=== PATIENT | female | born 2000 | race Caucasian/White ===

== ENCOUNTER 2020-11-14 19:01 | Emergency (ER) | payer MEDICARE, MEDICAID ==
[~2020-11-14] VITALS: Ht 162.6 cm; Wt 68.2 kg
--- NOTE | 2020-11-14 20:10 | NUR ---
PA currently at bedside.
[2020-11-14 20:33] VITALS: BP 117/71
== END 2020-11-14 20:37 | disposition home or self-care (01) ==
LOC: ER 19:02
DX: F41.9 Anxiety disorder, unspecified (principal); R06.02 Shortness of breath; R42 Dizziness and giddiness; R45.1 Restlessness and agitation; R51.9 Headache, unspecified; R11.11 Vomiting without nausea
CPT/HCPCS: 99281; 99283

== ENCOUNTER 2020-11-24 21:18 | Emergency (ER) | payer MEDICARE, MEDICAID ==
[~2020-11-24] VITALS: Ht 162.6 cm; Wt 68.2 kg
[2020-11-24 22:20] LABS: CLARITY,URINE CLEAR (Clear); COLOR,URINE YELLOW (Yellow); GLUCOSE, URINE NEGATIVE (Neg); KETONES,URINE NEGATIVE (Neg); LEUKOCYTE ESTERASE ,URINE TRACE (Neg); NITRITES, URINE NEGATIVE (Neg); OCCULT BLOOD,URINE NEGATIVE (Neg); PH,URINE 5.5 (4.8-8.0); PROTEIN,URINE NEGATIVE (Neg); UROBILINOGEN,URINE 0.2 E.U/dL (0.2-1.0)
[2020-11-24 22:27] LABS: UA COLLECTION TYPE CLN CATCH MIDSTREAM
[2020-11-24 22:28] LABS: BACTERIA,URINE FEW /HPF (Neg); RBC,URINE NONE SEEN /HPF (0-2); SQUAMOUS EPITHELIAL CELL,UR MODERATE /LPF (FEW); URINE AMPHETAMINE SCREEN NEGATIVE (Neg); URINE BARBITUATE SCREEN NEGATIVE (Neg); URINE BENZODIAZEPINES SCREEN NEGATIVE (Neg); URINE CANNABINOID SCREEN NEGATIVE (Neg); URINE COCAINE SCREEN NEGATIVE (Neg); URINE METHADONE SCREEN NEGATIVE (Neg); URINE OPIATE SCREEN NEGATIVE (Neg); URINE PHENCYCLIDINE SCREEN NEGATIVE (Neg); WBC,URINE 0-4 /HPF (0-4)
[2020-11-24 22:53] LABS: URINE HCG NEGATIVE (NEG)
[2020-11-24 23:51] VITALS: BP 128/84
== END 2020-11-24 23:50 | disposition left against medical advice (07) ==
LOC: ER 21:18
DX: R42 Dizziness and giddiness (principal); R00.2 Palpitations; H53.8 Other visual disturbances; R51.9 Headache, unspecified
CPT/HCPCS: 70450; 71045; 80305; 81001; 81025; 82948; 93005; 99285

== ENCOUNTER 2020-12-01 20:36 | Emergency (ER) | payer MEDICARE, MEDICAID ==
[~2020-12-01] VITALS: Ht 162.6 cm; Wt 77.2 kg
[2020-12-01 21:22] LABS: BASOPHILS % (AUTO) 0.2 % (0-1); EOSINOPHILS % (AUTO) 0.6 % (0-6); HEMATOCRIT 41.4 % (35.0-45.0); HEMOGLOBIN 13.7 g/dl (12.0-16.0); LYMPHOCYTES # (AUTO) 1.4 X10'3 (1.1-4.8); LYMPHOCYTES % (AUTO) 19.9 % (21-51); MEAN CORPUSCULAR HGB CONC 33.2 g/dL (33.0-36.5); MEAN CORPUSCULAR VOLUME 90.3 FL (78-98); MEAN PLATELET VOLUME 7.7 FL (7.4-10.4); MONOCYTES # (AUTO) 0.7 X10'3 (0-0.9); NEUTROPHILS # (AUTO) 4.7 X10'3 (1.8-7.7); NEUTROPHILS % (AUTO) 69.3 % (42-75); PLATELET COUNT 243 X10'3 (140-440); RED BLOOD COUNT 4.58 X10'6 (4.20-5.60); RED CELL DISTRIBUTION WIDTH 12.5 % (11.5-14.5); WHITE BLOOD COUNT 6.8 X10'3 (4.5-11.0)
[2020-12-01 21:31] LABS: ALANINE AMINOTRANSFERASE 32 U/L (12-78); ALBUMIN 4.2 G/DL (3.4-5.0); ALBUMIN/GLOBULIN RATIO 1.2 (1.1-1.5); ALKALINE PHOSPHATASE 80 IU/L (46-116); ANION GAP 13 (8-16); ASPARTATE AMINO TRANSFERASE 29 U/L (10-37); BILIRUBIN,TOTAL 0.4 MG/DL (0.1-1.0); BLOOD UREA NITROGEN 12 MG/DL (7-18); BUN/CREATININE RATIO 13.5 (6.6-38.0); CALCIUM 9.2 MG/DL (8.5-10.1); CHLORIDE 102 MMOL/L (99-107); CREATININE 0.89 MG/DL (0.40-0.90); GLUCOSE 100 MG/DL (70-104); POTASSIUM 3.4 MMOL/L (3.5-5.1); SODIUM 143 MMOL/L (135-145); TOTAL PROTEIN 7.8 G/DL (6.4-8.2); eGFR 80 ML/MIN
[2020-12-01 22:51] VITALS: BP 117/80
== END 2020-12-01 23:07 | disposition home or self-care (01) ==
LOC: ER 20:37
DX: R42 Dizziness and giddiness (principal); R07.89 Other chest pain; F41.9 Anxiety disorder, unspecified
CPT/HCPCS: 36415; 71045; 80053; 83880; 84484; 85025; 93005; 99285

== ENCOUNTER 2025-03-12 16:15 | Emergency (ER) | payer MEDICARE, MEDICAID ==
[~2025-03-12] VITALS: Ht 162.6 cm; Wt 78.7 kg
[2025-03-12 16:16] VITALS: BP 127/94; PULSE 112; RESP 16; TEMP 98.6; O2SAT 96
--- NOTE | 2025-03-12 16:51 | RADIOLOGY REPORT ---
CLINICAL INDICATION: ANKLE PAIN TECHNIQUE: 3 radiographic views of the right ankle were obtained. Comparison: None FINDINGS/IMPRESSION: There is no evidence of acute fracture or dislocation. The visualized joint space is well maintained. The alignment is anatomical. There is no radiopaque foreign body.
--- NOTE | 2025-03-12 17:09 | Physician Documentation ---
History of Present Illness ~ Chief Complaint: Ankle pain Stated Complaint: RT ANKLE PAIN Time Seen by MD: 16:52 Primary Medical Doctor: [facility] Source: patient Mode of Arrival: POV Exam Limitations: no limitations HPI 25-year-old female with right ankle pain over the past few hours after she rolled her ankle stepping off of the curb. She states when she got home her dad took her to [facility] but then she decided to come here because she states I need to know if it is broken or not because I have a trip planned next week. she has no prior history of injuries to her ankle. She is able to put some weight on her right foot and ankle but states it is painful. Pain is mostly over the lateral aspect of her ankle. No knee pain or hip pain. No other concerns or complaints. Tetanus witin 5 years: No Medication Reconciliation Allergies: Coded Allergies: No Known Allergies (Unverified , 11/14/20) Past Medical History Past Medical History: No Pertinent History Past Surgical History: no surgical history Alcohol Use: None Drug Use: none Lives In: Home Occupation: employed Review of Systems All Other Systems at this time: Reviewed and Negative Physical Exam Vital Signs: Temperature: 98.6, Heart Rate: 112, Respiratory Rate: 16, BP: 127/94, Pulse Oximetry: 96, Weight: 78.700 Physical Exam General Appearance: Alert, WD/WN. NAD. HEENT: NCAT, PERRL, EOMI. Neck: Supple, trachea midline. Cardiovascular: RRR. No m/r/g. Lungs: CTAB. Breathing unlabored Extremities: TTP OVER LATERAL ANKLE JOINT WITH MILD EDEMA ALSO MOSTLY LATERAL AN KLE JOINT, +ECCHYMOSIS, NO ERYTHEMA. NTTP OF MEDIAL ANKLE OR ACHILLES TENDON. AROM OF ANKLE JOINT IS DECREASED MOSTLY WITH LATERAL MOVEMENT. PEDAL PULSES 2+ BILATERALLY. Skin: Warm/dry, normal color Neurological: Alert and oriented x4, normal gait. Psychiatric: Affect congruent with mood. Progress Progress Note FITTED WITH WALKING BOOT Results/Orders Results/Orders Orders - DAPHNEY BERRIOS Ortho Orders (03/12/25 17:09) Vital Signs 03/12/25 16:16 Temp 98.6 Pulse 112 Resp 16 B/P (MAP) 127/94 Pulse Ox 96 EKG/XRAY/CT/US/VASC/MRI Bone/Soft Tissue X-Ray (Ext.) : Interpreted By: radiologist Views: 3 VIEW Indication: pain Location: ankle Impression: soft tissue swelling; No: fracture, dislocation Medical Decision Making Ankle Diff Dx:Considerations: Include: Abrasion, Arthritis, Contusion, DJD, Fracture-metatarsal, Fracture-fibula, Fracture-tarsal, Fracture-tibia, Gout, Hematoma, Laceration, Malunion, Neurovascular injury, Nonunion, Open fracture, Osteomyelitis, Rheumatoid arthritis, Sprain, Septic, Ulcer Departure Time of Disposition: 17:09 Disposition: 01 HOME / SELF CARE / HOMELESS Impression: Primary Impression: Sprain of ankle Qualified Codes: S93.401A - Sprain of unspecified ligament of right ankle, initial encounter Condition: Stable Discharge Instructions: Ankle Sprain Additional Instructions: F/U WITH PCP FOR REFERRAL TO PHYSICAL THERAPY ICE, ELEVATE AND WEAR WALKING BOOT AND GRADUALLY ADVANCE ACTIVITY TOLERATED Referrals: NO PRIMARY CARE PROVIDER (PCP) Education Educated: Patient Educated regarding: diagnosis, treatment, need for follow up Signature Scribe Signature: X Attestation: DAPHNEY AUSTIN Mar 12, 2025 17:09
== END 2025-03-12 17:25 | disposition home or self-care (01) ==
LOC: ER 16:15
DX: S93.401A Sprain of unspecified ligament of right ankle, initial encounter (principal); X50.1XXA Overexertion from prolonged static or awkward postures, initial encounter; Y93.89 Activity, other specified; Y92.89 Other specified places as the place of occurrence of the external cause; Y99.8 Other external cause status
CPT/HCPCS: 73610; 99283; L4360